=== PATIENT | male | born 1940 | race African-American/Black ===

== ENCOUNTER 2025-01-06 09:35 | Emergency (ER) | payer MEDICARE, MEDICAID ==
[~2025-01-06] VITALS: Ht 172.7 cm; Wt 85.0 kg
[2025-01-06 09:38] VITALS: O2SAT 96
[2025-01-06 09:46] VITALS: BP 127/75; PULSE 94; RESP 18; TEMP 36.8; O2SAT 95
[2025-01-06 10:08] LABS: BASOPHILS % 0.4 % (0.0-2.0); EOSINOPHILS % 0.9 % (0.0-5.0); HEMATOCRIT. 36.4 % (42.0-52.0); HEMOGLOBIN. 12.0 g/dL (14.0-18.0); LYMPHOCYTES % 16.5 % (20.0-50.0); MEAN PLATELET VOLUME 7.3 fl (7.4-10.4); MONOCYTES % 8.5 % (2.0-8.0); NEUTROPHILS % 73.7 % (40.0-76.0); PLATELET 243 x1000/uL (130-400); RED BLOOD CELL COUNT 4.33 mill/uL (4.7-6.1); RED CELL DISTRIBUTION WIDTH 14.0 % (11.6-14.6)
[2025-01-06 10:28] LABS: CREATININE 1.0 mg/dL (0.6-1.3); UREA NITROGEN BLOOD 9 mg/dL (9-23)
[2025-01-06] MEDS ORDERED: POTA15TA11 MT (10:54)
[2025-01-06] MEDS: POTASSIUM CHLORIDE 20MEQ/PACKET PO ONE (11:00)
== END 2025-01-06 11:14 | disposition left against medical advice (07) ==
LOC: ER 09:35
DX: E87.6 Hypokalemia (principal); I10 Essential (primary) hypertension; E11.9 Type 2 diabetes mellitus without complications
CPT/HCPCS: 36415; 80048; 85025; 93005; 99284